=== PATIENT | female | born 1960 | race Caucasian/White ===

== ENCOUNTER 2024-09-18 17:20 | Emergency (ER) | payer OTHER, SELFPAY ==
--- NOTE | ~2024-09-18 | CT_ITS ---
CLINICAL HISTORY: abd pain CT abdomen and pelvis with contrast Comparison: None Findings: Fluid-filled distal esophagus with small hiatal hernia. Kidneys enhance symmetrically and have normal cortical thickness. No renal or ureteral stones. No hydronephrosis. Spleen, adrenal glands, pancreas, gallbladder and liver are unremarkable. Wall calcifications in the abdominal aorta. No abdominal aortic aneurysm. No bowel obstruction, pneumoperitoneum, or pneumatosis. There are scattered colonic diverticula, however no evidence of diverticulitis. Moderate fecal loading in the right colon. No bowel wall thickening. Normal appendix. Uterus is absent. Distended urinary bladder with thin reid. The bones are intact. IMPRESSION: No acute findings. This document has been electronically signed by: Dixon Bishop MD on 09/18/2024 20:10:16
[2024-09-18 17:31] VITALS: BP 162/78; BP 186/70; PULSE 70; PULSE 73; RESP 16; TEMP 36.7; O2SAT 96; O2SAT 97; BMI 26.3
--- NOTE | 2024-09-18 17:41 | ECG_ITS ---
Test Reason : ABD PAIN Blood Pressure : */* mmHG Vent. Rate : 68 BPM Atrial Rate : 68 BPM P-R Int : 164 ms QRS Dur : 76 ms QT Int : 380 ms P-R-T Axes : 62 8 40 degrees QTcB Int : 404 ms Normal sinus rhythm Possible Left atrial enlargement Septal infarct , age undetermined Abnormal ECG When compared with ECG of 23-Jun-2001 20:27, Questionable change in QRS axis Referred By: Agustin Martino Electronically Signed By: MARIEL BUTLER
[2024-09-18 18:13] LABS: MANUAL DIFF FLAG NO
[2024-09-18 18:18] LABS: Basophils Absolute Auto 0.1 X10*3/uL (0.0-0.2); Basophils Percent Auto 0.5 % (0-2); Eosinophils Absolute Auto 0.1 X10*3/uL (0.0-0.4); Eosinophils Percent Auto 0.8 % (0-4); Hematocrit 40.1 % (37.0-47.0); Hemoglobin 13.5 g/dl (12.0-16.0); Imm Gran Abs Auto 0.05 X10*3/uL (0.00-0.03); Imm Gran Pct Auto 0.5 % (0.0-0.4); Lymphocytes Absolute Auto 1.4 X10*3/uL (1.2-4.9); Lymphocytes Percent Auto 13.6 % (20-40); Mean Corpuscular HGB Conc 33.7 g/dl (31.0-35.0); Mean Corpuscular Hemoglobin 29.2 pg (27.0-33.0); Mean Corpuscular Volume 86.8 fL (80.0-98.0); Mean Platelet Volume 9.2 fL (9.4-12.3); Monocytes Absolute Auto 0.9 X10*3/uL (0.1-1.2); Monocytes Percent Auto 8.7 % (2-11); Neutrophils Absolute Auto 7.7 x10*3/uL (2.0-8.3); Neutrophils Percent Auto 75.9 % (45-73); Platelet Count 290 X10*3/uL (160-400); Red Blood Count 4.62 X10*6/uL (4.20-5.50); Red Cell Distribution Width 14.8 % (11.0-16.0); White Blood Count 10.1 X10*3/uL (4.8-10.8)
[2024-09-18 18:26] LABS: Appearance Urine Clear; Color Urine Yellow; Glucose Urine UA Negative (Negative); Leukocyte Esterase Urine Negative (Negative); Nitrite Urine Negative (Negative); PH 6.5 (5.0-9.0); Specific Gravity - Urine <= 1.005 (1.005-1.025); UMIC TRIGGER UACC YES; Urine Blood Trace (Negative); Urine Ketones Negative (Negative); Urine Protein Negative (Neg-Trace)
[2024-09-18 18:29] LABS: Alanine Aminotransferase 14 U/L (0-31); Albumin Level 4.1 g/dL (3.5-5.0); Alkaline Phosphatase 81 U/L (39-117); Anion Gap 12 (12-20); Aspartate Amino Transferase 28 U/L (5-31); Bilirubin Direct 0.1 mg/dL (0.0-0.5); Bilirubin Total 0.3 mg/dL (0.0-1.0); Blood Urea Nitrogen 19 mg/dL (9-16); Calcium 10.8 mg/dL (8.4-10.2); Carbon Dioxide 24 mmol/L (22-29); Chloride 102 mmol/L (96-108); Creatinine Clr Calc Pharmacy 83.5; Estimated Glomerular Filt Rate > 60; Glucose Random 105 mg/dL (60-115); Lactic Acid 1.3 mmol/L (0.5-2.0); Lipase 24 U/L (8-78); Potassium 4.3 mmol/L (3.3-5.1); Sodium 134 mmol/L (135-145); Total Protein 7.5 g/dL (6.5-8.0)
[2024-09-18 18:36] LABS: Troponin-I High Sens Reflx 2hr 2.9 ng/L (<3.5-17.0)
[2024-09-18 18:45] LABS: Bacteria Urine None Seen (None Seen); Hyaline Casts Urine 0-2 /LPF (0-2); RBC Urine 0-2 /HPF (0-2); Squamous Epithelial Cell Urine 0-2 /HPF (0-2); WBC Urine 0-5 /HPF (0-5)
--- NOTE | 2024-09-18 19:21 | PC.NURSE ---
Report taken from Trini LACEY assumed care of pt at this time. Off floor to CT.
[2024-09-18] MEDS: iohexoL 350 MG/ML 100 ML INFUS..BTL 85 ML IV (19:26)
[2024-09-18 19:31] LABS: Amphetamine Screen Urine Not Detected (Not Detect); Barbiturates, Urine Not Detected (Not Detect); Benzodiazepines Screen Urine Not Detected (Not Detect); Buprenorphine Scr Not Detected (Not Detect); Cannabinoid Screen Urine Not Detected (Not Detect); Cocaine Screen Urine Not Detected (Not Detect); Fentanyl, urine Not Detected (Not Detect); Methadone Screen, Urine Not Detected (Not Detect); Opiate Screen Urine Not Detected (Not Detect); Oxycodone Screen Urine Not Detected (Not Detect); Phencyclidine Screen Urine Not Detected (Not Detect)
--- NOTE | 2024-09-18 19:36 | ED.GENADULT ---
HPI - General Adult General Chief complaint: Abdominal Pain Stated complaint: abd pain, N/V/D Time Seen by Provider: 09/18/24 17:41 Source: patient Limitations: no limitations History of Present Illness HPI narrative: 60-year-old female presenting for abdominal pain. Patient states that she has been experiencing years of chronic lower abdominal pain however over the past week she has noticed that it has worsened in nature. She also endorses nonbloody diarrhea. She denies fevers, chills, nausea, vomiting, dysuria, chest pain, shortness of breath. She has history of hysterectomy. Related Data Previous Rx's ?Medication ?Instructions ?Recorded famotidine 20 mg tablet (Pepcid) 20 mg PO BID 30 days #60 tabs 09/18/24 polyethylene glycol 3350 17 17 g PO BID #238 grams 09/18/24 gram/dose oral powder (Miralax) Allergies Allergy/AdvReac Type Severity Reaction Status Date / Time poison lynette extract Allergy Severe BLISTERS Verified 09/18/24 17:36 [POISON LYNETTE] SWELLING bupropion [From Wellbutrin] Allergy Unknown Worsening Verified 09/18/24 17:36 Mood Poison Lynette Scrub Allergy Unknown blisters Verified 09/18/24 17:36 fluoxetine [Prozac] AdvReac Unknown worsening Verified 09/18/24 17:36 mood Review of Systems Review of Systems: Yes all other systems are reviewed and are negative PMFSH Past Medical History Surgical History H/O: hysterectomy Social History Social History Alcohol intake: current Alcohol intake frequency: 3 or more drinks per day Alcohol type: beer Smoked in Last 30 Days: Yes Use of substances other than those prescribed or required for medical reasons: No Advance Directives: No Advance Directives Information Provided: Yes Do you have a plan to hurt others: No Plan Patient : No Physical Exam ED Vital Signs: Vital Signs - 24 hr 09/18/24 17:31 Temperature 98.0 F Pulse Rate 73 Respiratory Rate 16 Blood Pressure 186/70 H Pulse Oximetry 96 Oxygen Delivery Method Room Air BMI result Body Mass Index 26.3 Well-appearing female in no acute distress Normal speech and cognition Unlabored breathing with clear lung doll Normal S1-S2 regular rhythm Abdomen is soft, nondistended with mild bilateral lower quadrant tenderness palpation No CVA tenderness Medications Administered Discontinued Medications Generic Name Dose Route Start Last Admin Trade Name Olivia PRN Reason Stop Dose Admin Iohexol 85 ml 09/18/24 19:25 09/18/24 19:26 Iohexol 350 Mg/Ml 100 Ml Infus..Btl IV 09/18/24 19:26 85 ml ONCE ONE Administration Medical Decision Making Medical Decision Making [facility] Narrative: 63-year-old female presenting for abdominal pain -I am concerned for the following; gastroenteritis, colitis/enteritis, UTI, constipation, nephrolithiasis -labs and imaging studies ordered My independent lab and imaging interpretation: -stable H&H, no white count, electrolytes within normal limits, negative trop -EKG showing sinus rhythm, normal QTC and no ST-elevation -constipation appreciated on CT scan with no large obstruction; radiology impression notes similar findings MiraLax and Pepcid sent to patient's pharmacy. I gave patient home care instructions/follow up instructions and return precautions. I gave referral for local PCPs Lab Data 09/18/24 18:07 09/18/24 18:07 Labs: Lab Results 09/18/24 09/18/24 Range/Units 18:07 18:18 WBC 10.1 (4.8-10.8) X10*3/uL RBC 4.62 (4.20-5.50) X10*6/uL Hgb 13.5 (12.0-16.0) g/dl Hct 40.1 (37.0-47.0) % MCV 86.8 (80.0-98.0) fL MCH 29.2 (27.0-33.0) pg MCHC 33.7 (31.0-35.0) g/dl RDW 14.8 (11.0-16.0) % Plt Count 290 (160-400) X10*3/uL MPV 9.2 L (9.4-12.3) fL Immature Gran % (Auto) 0.5 H (0.0-0.4) % Neut % (Auto) 75.9 H (45-73) % Lymph % (Auto) 13.6 L (20-40) % [place] % (Auto) 8.7 (2-11) % Eos % (Auto) 0.8 (0-4) % Baso % (Auto) 0.5 (0-2) % Lymph # (Auto) 1.4 (1.2-4.9) X10*3/uL [place] # (Auto) 0.9 (0.1-1.2) X10*3/uL Eos # (Auto) 0.1 (0.0-0.4) X10*3/uL Baso # (Auto) 0.1 (0.0-0.2) X10*3/uL Abs Immat Gran (auto) 0.05 H (0.00-0.03) X10*3/uL Absolute Neuts (auto) 7.7 (2.0-8.3) x10*3/uL Absolute Nucleated RBC 0.000 (0.0-0.012) X10*3/uL Nucleated RBC % (auto) 0.0 (0.0-0.2) /100WBC Sodium 134 L (135-145) mmol/L Potassium 4.3 (3.3-5.1) mmol/L Chloride 102 (96-108) mmol/L Carbon Dioxide 24 (22-29) mmol/L Anion Gap 12 (12-20) BUN 19 H (9-16) mg/dL Creatinine 0.66 (0.5-1.4) mg/dL Estim Creat Clear Calc 83.5 Estimated GFR > 60 Random Glucose 105 (60-115) mg/dL Lactic Acid 1.3 (0.5-2.0) mmol/L Calcium 10.8 H (8.4-10.2) mg/dL Total Bilirubin 0.3 (0.0-1.0) mg/dL Direct Bilirubin 0.1 (0.0-0.5) mg/dL AST 28 (5-31) U/L ALT 14 (0-31) U/L Alkaline Phosphatase 81 (39-117) U/L Troponin I Hi Sens Base 2.9 (<3.5-17.0) ng/L Total Protein 7.5 (6.5-8.0) g/dL Albumin 4.1 (3.5-5.0) g/dL Lipase 24 (8-78) U/L Urine Color Yellow Urine Appearance Clear Urine pH 6.5 (5.0-9.0) Ur Specific [place] <= 1.005 (1.005-1.025) Urine Protein Negative (Neg-Trace) mg/dL Urine Glucose (UA) Negative (Negative) mg/dL Urine Ketones Negative (Negative) mg/dL Urine Blood Trace H (Negative) Urine Nitrite Negative (Negative) Ur Leukocyte Esterase Negative (Negative) Urine RBC 0-2 (0-2) /HPF Urine WBC 0-5 (0-5) /HPF Ur Squamous Epith Cells 0-2 (0-2) /HPF Urine Bacteria None Seen (None Seen) Hyaline Casts 0-2 (0-2) /LPF Urine Opiates Screen Not Detected (Not Detect) Ur Buprenorphine Scrn Not Detected (Not Detect) ng/mL Ur Oxycodone Screen Not Detected (Not Detect) ng/mL Urine Methadone Screen Not Detected (Not Detect) ng/mL Urine Fentanyl Screen Not Detected (Not Detect) Ur Barbiturates Screen Not Detected (Not Detect) Ur Phencyclidine Scrn Not Detected (Not Detect) Ur Amphetamines Screen Not Detected (Not Detect) U Benzodiazepines Scrn Not Detected (Not Detect) Urine Cocaine Screen Not Detected (Not Detect) U Marijuana (THC) Screen Not Detected (Not Detect) Discharge Plan Discharge Clinical Impression: Abdominal pain Qualifiers: Abdominal location: generalized Qualified Code(s): R10.84 - Generalized abdominal pain Constipation Qualifiers: Constipation type: unspecified constipation type Qualified Code(s): K59.00 - Constipation, unspecified Patient Disposition: Home, Self-Care Additional Instructions: Please follow up with a primary care provider in the next 24-48 hours for reassessment. 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 If you develop any new or worsening symptoms please return to the emergency department Prescriptions: New famotidine [Pepcid] 20 mg tablet 20 mg PO BID 30 Days Qty: 60 0RF polyethylene glycol 3350 [Miralax] 17 gram/dose powder 17 g PO BID Qty: 238 0RF Print Language: Tristanian
[2024-09-18 20:11] LABS: Reflex Trop? Y
--- NOTE | 2024-09-18 20:44 | PC.NURSE ---
Pt was seen by xray staff exiting bathroom after smoke smell noticed in area. Cigarette ashes found on toilet, when asked by staff initally pt admitted to smoking in bathroom, then denied to this RN. Safety search completed by security pt cooperative with search. 2 packs of cigarettes and precipitation equipment tender removed off person and secured with security.
[2024-09-18 21:07] LABS: zTroponin-I High Sen Reflex #2 5.9 ng/L (<3.5-17.0)
[2024-09-18 21:10] VITALS: BP 177/75; PULSE 73; RESP 18; TEMP 37.2; O2SAT 96
[2024-09-18] MEDS: Acetaminophen 325 MG TABLET 650 MG PO (21:28)
[2024-09-18] MEDS: Famotidine/PF 20 MG/2 ML VIAL IVPUSH (21:29)
[2024-09-18] MEDS: Magnesium Hydrox/Alum Hydrox 30 ML ORAL.SUSP PO (21:29)
[2024-09-18 21:40] VITALS: BP 177/75; PULSE 73; RESP 18; TEMP 37.2; O2SAT 96
== END 2024-09-18 21:40 | disposition home or self-care (01) ==
PROVIDERS: Emergency Provider Student in an Organized Health Care Education/Training Program
DX: R10.84 Generalized abdominal pain (principal); K59.00 Constipation, unspecified; F17.210 Nicotine dependence, cigarettes, uncomplicated
CPT/HCPCS: 36415; 74177; 80048; 80076; 80307; 81001; 83605; 83690; 84484; 85025; 93005; 96374; 99284; 99285; J1308; Q9967

== ENCOUNTER → 2024-09-18 17:41 | Outpatient (BNV) | payer OTHER, SELFPAY | PROVIDERS: Emergency Provider Student in an Organized Health Care Education/Training Program; Visit Provider Internal Medicine | DX: R94.31 Abnormal electrocardiogram [ECG] [EKG] (principal); R10.9 Unspecified abdominal pain | CPT/HCPCS: 93010 ==

== ENCOUNTER → 2024-09-18 18:25 | Outpatient (BNV) | payer OTHER, SELFPAY | PROVIDERS: Emergency Provider Student in an Organized Health Care Education/Training Program; Visit Provider Radiology Diagnostic Radiology | DX: R10.9 Unspecified abdominal pain (principal) | CPT/HCPCS: 74177 ==

== ENCOUNTER 2025-04-23 19:15 | Emergency (ER) | payer OTHER, SELFPAY ==
--- OUTSIDE RECORDS SUMMARY | 2025-04-19 08:51 | XMS_ITS | Continuity of Care Document ---
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 Name Role Phone Daniel GAMBOA, Eliza Dickerson Primary Care Physician Encounter [facility] Date(s): 04/19/25 - 04/19/[address] [address]- Discharge Disposition: A-D/C Home Attending Physician: Last Gallagher MD Admitting Physician: Last Gallagher MD Referring Physician: Not on Staff, Referring MD Encounter Type: Disch ES Allergies, Adverse Reactions, Alerts Substance Criticality Severity Reaction Reaction Severity Status Other Environmental Allergy poison cathie Active Medications aspirin 81 mg oral delayed release tablet 81 mg, By Mouth, Daily, # 30 tablet, Refills 11, Tot. Refills 11, Maintenance, 04/07/25 10:55:00 AMEST, Route to Pharmacy Electronically, [facility], Partial fill upon patient request if the prescription is for a schedule II opioid drug., 66, kg, 04/05/25 6:50:00 EST, Dry Weight Start Date: 04/07/25 Stop Date: 04/02/26 Status: Ordered Medication Dispense Status: Completed Quantity: 30.0 Unit: tablet Total Allowed Fills: 12 Fills Dispensed: 0 atorvastatin 80 mg oral tablet = 80 mg, By Mouth, Daily at bedtime, # 60 tablet, 0 Refills, Maintenance, 04/10/25 10:13:00 AM EST,Tablet, [facility], Partial fill upon patient request if the prescription is for a schedule II opioid drug., 66, kg, 04/05/25 6:50:00 EST, Dry Weight Start Date: 04/10/25 Stop Date: 06/09/25 Status: Ordered Medication Dispense Status: Completed Quantity: 60.0 Unit: tablet Total Allowed Fills: 1 Fills Dispensed: 0 busPIRone 10 mg oral tablet 10 mg, 1, tablet, By Mouth, 2 times a day, Maintenance, 04/06/25 9:22:00 AM EST, Partial fill upon patient request if the prescription is for a schedule II opioid drug. Start Date: 04/06/25 Status: Ordered Medication Dispense Status: Completed Total Allowed Fills: 1 Fills Dispensed: 0 LORazepam 0.5 mg oral tablet 1 tablet = 0.5 mg, By Mouth, Daily at bedtime, PRN as needed for anxiety Start Date: 04/06/25 Status: Ordered Medication Dispense Status: Completed Total Allowed Fills: 1 Fills Dispensed: 0 morphine 15 mg oral tablet, immediate release 1 tablet = 15 mg, By Mouth, Every 6 hours, PRN as needed for pain, for 3 days, # 5 tablet, 0 Refills, Acute 04/22/25 6:42:00 AM EST, 04/19/25 6:42:00 AM EST, Tablet, [facility], Partialfill upon patient request if the prescription is for a schedule II opioid drug., 164, cm, 04/19/25 2:36:00 EST, Height, 65, kg, 04/19/25 2:36:00 EST, Dry Weight Start Date: 04/19/25 Stop Date: 04/22/25 Status: Ordered Medication Dispense Status: Completed Quantity: 5.0 Unit: tablet Total Allowed Fills: 1 Fills Dispensed: 0 MorPHINE Inj 4 mg, Injection, IV Push Slowly, Every 5 minutes for 3 doses/times, PRN for Pain , Moderate, and SBP greater than 100, STAT, 04/19/25 3:21:00 AM EST Start Date: 04/19/25 Stop Date: 04/20/25 Status: Discontinued Medication Dispense Status: Completed Total Allowed Fills: 1 Fills Dispensed: 0 nicotine 21 mg/24 hr transdermal film, extended release = 21 mg, Topically, Daily, for 30 days, # 30 patch, 0 Refills, Acute 05/10/25 10:12:00 AM EST, 04/10/25 10:12:00 AM EST, Patch, [facility], Partial fill upon patient request if the prescription is for a schedule II opioid drug., 21 mg Topically Daily,x30 days, 66, kg, 04/05/25 6:50:00EST, Dry Weight Start Date: 04/10/25 Stop Date: 05/10/25 Status: Ordered Medication Dispense Status: Completed Quantity: 30.0 Unit: patch Total Allowed Fills: 1 Fills Dispensed: 0 Plavix 75 mg oral tablet 75 mg, By Mouth, Daily, # 30 capsule, Refills 3, Tot. Refills 3, Maintenance, 04/07/25 10:55:00 AM EST, Route to Pharmacy Electronically, [facility], Partial fill upon patient request if the prescription is for a schedule II opioid drug., 66, kg, 04/05/25 6:50:00 EST, Dry Weight Start Date: 04/07/25 Stop Date: 08/05/25 Status: Ordered Medication Dispense Status: Completed Quantity: 30.0 Unit: capsule Total Allowed Fills: 4 Fills Dispensed: 0 QUEtiapine 25 mg oral tablet 25 mg, 1, tablet, By Mouth, Daily at bedtime Start Date: 04/06/25 Status: Ordered Medication Dispense Status: Completed Total Allowed Fills: 1 Fills Dispensed: 0 Tums 500 mg oral tablet, chewable 500 mg, 1, tablet, Chew, Daily, PRN, Maintenance, as needed for dyspepsia, 04/06/25 9:25:00 AM EST,Partial fill upon patient request if the prescription is for a schedule II opioid drug. Start Date: 04/06/25 Status: Ordered Medication Dispense Status: Completed Total Allowed Fills: 1 Fills Dispensed: 0 Tylenol 325 mg oral tablet 975 mg, By Mouth, Every 6 hours, Refills 0, Maintenance, 04/10/25 10:08:00 AM EST, Partial fill upon patient request if the prescription is for a schedule II opioid drug. Start Date: 04/10/25 Status: Ordered Medication Dispense Status: Completed Total Allowed Fills: 1 Fills Dispensed: 0 varenicline 1mg tablet = 1 mg, By Mouth, 2 times a day, for 12 week(s), # 56 tablet, 0 Refills, Acute 07/03/25 10:10:00 AM EST, 04/10/25 10:10:00 AM EST, Tablet, [facility], Partial fill upon patient request ifthe prescription is for a schedule II opioid drug., 66, kg, 04/05/25 6:50:00 EST, Dry Weight Start Date: 04/10/25 Stop Date: 07/03/25 Status: Ordered Medication Dispense Status: Completed Quantity: 56.0 Unit: tablet Total Allowed Fills: 1 Fills Dispensed: 0 Results Radiology Reports * Exam Date Time Procedure Performing Provider Status 04/19/25 4:[address] Angio Abdomen and Pelvis Auth (Verified) Notes: (CT Angio Abdomen and Pelvis) Reason For Exam: s/p SMA thrombectomy, celiac stent, polypectomy;Pain RESULT: CT Angio Abdomen and Pelvis CT Angio Abdomen and Pelvis INDICATION: Hx of Present Illness: Pt from home, pt has had chronic abd pain, with previous surguryto removes polyps. Pt is also constipated.; Reason: Pain; s p SMA thrombectomy, celiac stent, polypectomy; Clinical Question(s): Other:; stenosis; Order Comment: Other: - COMPARISON: CT abdomen and pelvis from 04/14/2025 TECHNIQUE: Axial images were obtained from diaphragm through the pelvis during the intravenous administration of iodinated contrast. 100 cc of Isovue 300 100cc vials was administered intravenously. Delayed (venous) images were also acquired for evaluation of the portal veins. Sagittal and coronal maximum intensity projection (MIP) images were reconstructed and rendered in both arterial and venousphases. Weight-based protocol using automatic tube modulation was used to optimize exposure parameters. RADIATION DOSE PARAMETERS: CTDIvol Body: 12.35 mGy, DLP Body: 1307 mGy*cm. VASCULAR FINDINGS: Abdominal aorta: No aortic aneurysm or dissection. Moderate to severe atherosclerosis. Celiac axis: Stenting of the celiac artery which is patent. There is similar low-attenuation signalaround the proximal celiac artery measuring 7 mm in thickness on each side (404:204) that is unchanged. Mild narrowing of the celiac artery distal to the stent. Superior mesenteric artery: Patent. Replaced common hepatic artery. Below the takeoff of the commonhepatic artery is mild/moderate narrowing with low-density posterior filling defect which is unchanged measuring 5 mm (404:244). Distal SMA branches are patent. Right renal artery: Patent. Left renal artery: Patent. Mild left proximal narrowing. Inferior mesenteric artery: Patent. Mild narrowing at the origin. Peripheral atherosclerosis of the iliac arteries. Right common iliac artery: Patent. Right internal iliac artery: Patent. Right external iliac artery: Patent. Short segment moderate distal stenosis. Right common femoral artery: Patent. Mild narrowing. Visualized right superficial and deep femoral arteries: Patent. Left common iliac artery: Patent. Left internal iliac artery: Patent. Left external iliac artery: Patent. Left common femoral artery: Patent. Visualized left superficial and deep femoral arteries: Patent. IVC and hepatic veins: Patent. Portal vein: Patent. Splenic vein: Patent. Superior mesenteric vein: Patent. Iliac and femoral veins: Patent. 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 Visualized Chest: Lung bases are clear. No pleural effusion. The heart is normal in size. No pericardial effusion. Diaphragm: Normal. Liver: Normal morphology and attenuation. Small probable cyst in the left lobe. No suspicious lesion. Gallbladder: No CT evidence of gallbladder pathology. Bile ducts: No biliary ductal dilation. Spleen: Normal in size. Pancreas: No suspicious lesion or ductal dilatation. Adrenal glands: No nodule. Kidneys and ureters: No hydronephrosis, stones, or suspicious masses. Bladder: No significant wall thickening or surrounding inflammation. Reproductive organs: Hysterectomy. Stomach, small bowel, and large bowel: Normal caliber stomach and bowel. No surrounding inflammation or wall thickening. Colonic diverticulosis without evidence of acute diverticulitis. Well-formed stool in the distal colon. Appendix: Normal Peritoneum and retroperitoneum: No ascites or pneumoperitoneum. No omental or mesenteric lesions. Lymph nodes: No enlarged lymph nodes. Abdominal and pelvic wall: Unremarkable. Bones: No acute abnormality. IMPRESSION: Compared to CTA from 04/14/2025, no significant change status post stenting of the celiac artery which is patent. Similar low-attenuation haziness around the celiac axis, possibly due to recent instrumentation or vasculitis. Mild to moderate narrowing of the SMA just below the takeoff of the replaced common hepatic artery with a small amount of eccentric low-attenuation plaque or thrombus. No specific evidence of mesenteric ischemia. Agreed with [facility] report. WSN: [id number] Ordering Physician: Tiffanie Manrique Dictated By: Hussain Ferrer MD Dictated Date/Time: 04/19/25 2:20 pm Reviewed By: Hussain Ferrer MD Signed By: Hussain Ferrer MD Signed Date/Time: 04/19/25 2:20 pm Transcribed By: BOSSMAN Transcribed Date/Time: 04/19/25 2:08 pm Vital Signs Most recent to oldest [Reference Range]: 1 2 3 Height 164 cm (04/19/25 2:36 AM) Oxygen Saturation [94-100 %] 94 % (04/19/25 6:07 AM) 96 % (04/19/25 4:00 AM) 98 % (04/19/25 2:08 AM) Pulse Rate [55-90 bpm] 76 bpm (04/19/25 6:07 AM) 68 bpm (04/19/25 4:00 AM) 71 bpm (04/19/25 2:08 AM) Blood Pressure [90-138/55-84 mm Hg] 114/77mm Hg (04/19/25 6:07 AM) 133/60mm Hg (04/19/25 4:00 AM) 148/67mm Hg *H* (04/19/25 2:08 AM) Respiratory Rate [16-30 br/min] 15 br/min *L* (04/19/25 6:07 AM) 19 br/min (04/19/25 6:05 AM) 17 br/min (04/19/25 4:00 AM) Temperature [96.8-100.4 DegF] 98.5 DegF (04/19/25 6:07 AM) 98.1 DegF (04/19/25 2:08 AM) Mode of Delivery (Oxygen) Room air (04/19/25 6:07 AM) Room air (04/19/25 4:00 AM) Room air (04/19/25 2:08 AM) Blood pressure sites Arm, left (04/19/25 6:07 AM) Arm, left (04/19/25 4:00 AM) Arm, left (04/19/25 2:08 AM) Temperature Route Oral (04/19/25 6:07 AM) Oral (04/19/25 2:08 AM) Dry Weight 65 kg (04/19/25 2:36 AM) Weight Obtained Via Patient lift hanging scale (04/19/25 2:36 AM) Social History Social History Type Response Sex Sex Representation Female (finding) Status Not Note * iTffanie Manrique DO: PERFORM Event Display: Patient Education Leaflets Authored Date: [id number] [facility] - If you need a Doctor or Clinic ?? 34 If You Need a Doctor or Clinic ?? Call [facility] PCP Assignment Line to help you find a doctor:?? [phone] ?? Clinics in [place], [place] For a full list of clinics:? [email or web address].[employer] ?? [facility]? [address] [phone] [facility]?[address]?[phone] [place] [address]?[address][phone] [facility]?[address][phone] [facility]?[address] [phone] [facility]?[address][phone] [facility]?[address][phone] [facility]?[address] [phone] [facility]? [address][phone] [facility] social media director?[address][phone] [facility]?[address][phone] [facility]?[address][phone] [facility]?[address][phone] [facility]? [address][phone] [facility]?[address][phone] ? Patient Care team information Care Team Personnel Name: Kell Phillips RN Position: TRAVISS RN Member Role: Primary Care Nurse Name: Eliza Sanchez MD Position: Reference Physician Member Role: PCP Address: [address] [place], [place] [address] Telecom: Name: Malachi Frias RN Position: [facility] RN Member Role: Primary Care Nurse Name: Leisa Knowles RN Position: S RN Member Role: Primary Care Nurse Care Team Related Persons Name: JEANINEJean RAY Insurance Providers Guarantor name: Health Plan Information #: 1 Payer: [employer] Payer Identifier: [place]AVAGE Member Number: [id number] Group Number: [facility] Subscriber Identifier: [id number] Relationship to Subscriber: self Coverage Type: NA Coverage Verification Date: Telecom: NA Address:
--- NOTE | 2025-04-23 19:28 | ED_ITS ---
HPI - Abdominal Pain General Chief Complaint: Abdominal Pain Stated Complaint: ABD pain Time Seen by Provider: 04/23/25 19:28 Source: patient, EMS, RN notes reviewed, old records reviewed and other ([facility] records) Mode of arrival: EMS Limitations: no limitations History of Present Illness ED Provider: Kalyn Osorio PA-C HPI narrative: Patient seeks medical attention today requesting pain medication for her abdomen. Per EMS, patient walked out to them calmly, told them she was smoking a cigarette first, proceeded to outside, then she got into the ambulance. 64-year-old female presents to the ED for evaluation of diffuse abdominal pain. She reports a 4-year history of chronic abdominal pain with multiple prior ED visits and hospitalizations without a clear etiology. The current episode is described as ?all over,? involving both upper and lower abdomen, and is more severe than previous flares. She was last seen here in August for similar pain and has presented to [facility] ED several times over the past two weeks (11/05, 11/07, 11/12, 11/17) where CT abdomen/pelvis with IV contrast was performed each time and reportedly unrevealing. Three weeks ago she underwent two procedures at [facility]: ? Stent placement for an ?almost closed artery? to the colon (mesenteric ischemia). ? Colonoscopy with removal of two polyps (cecum and sigmoid) ? 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 fully excised per report. During her [facility] visit two nights ago she received IV hydromorphone and an oxycodone prescription (now finished). She also had documented electrolyte abnormalities (K 3.2, Mg 1.5) and mild hyponatremia (Na 131). She denies any new or focal symptoms today but seeks definitive relief of pain. She initially declined but now consents to blood draw, IV fluids, and electrolyte repletion. She understands another CT is deferred given recent imaging. Review of Systems: * Constitutional: Denies fever, chills. * Gastrointestinal: Positive for diffuse abdominal pain. Denies diarrhea, vomiting, GI bleed, or bright-red blood per rectum. * Genitourinary: Denies dysuria; voiding without pain. [facility] records rev'd: Patient was seen at [facility] Emergency Department for which she reports was 2 days ago records were reviewed labs from 04/19/2025 shows no evidence of leukocytosis BERTRAND hepato or biliary disease she does have mild normoocytic anemia RBC: 3.44 H/H 10.0/30.8, her K was 3.4, lactate normal. She has CTA of abd/pelvis: IMPRESSION: Compared to CTA from 04/07/2025 and 04/14/2025, no significant change status post stenting of the celiac artery which is patent. Similar low-attenuation haziness around the celiac axis, possibly due to recent instrumentation or vasculitis. Mild to moderate narrowing of the SMA just below the takeoff of the replaced common hepatic artery with a small amount of eccentric low-attenuation plaque or thrombus. No specific evidence of mesenteric ischemia. From colonocopy on 04/09/25: Tissue Source: 1:SIGMOID COLON POLYPS, 2:CECAL POLYP ? Final Diagnosis: 1. ?Colon, sigmoid, polyps, polypectomy: ?? ? - Tubular adenoma, multiple fragments. ? 2. ?Colon, cecum, polyp, polypectomy: ?? ? - Tubular adenoma, fragments of. Related Data Previous Rx's ?Medication ?Instructions ?Recorded famotidine 20 mg tablet (Pepcid) 20 mg PO BID 30 days #60 tabs 09/18/24 polyethylene glycol 3350 17 17 g PO BID #238 grams gram/dose oral powder (Miralax) oxycodone 10 mg tablet,crush 10 mg PO DAILY #3 tabs resistant,extended release 12 hr Allergies Allergy/AdvReac Type Severity Reaction Status Date / Time poison lynette extract (POISON Allergy Severe BLISTERS Verified 04/23/25 19:40 LYNETTE) SWELLING bupropion (From Wellbutrin) Allergy Unknown Worsening Verified 04/23/25 19:40 Mood Poison Lynette Scrub Allergy Unknown blisters Verified 04/23/25 19:40 fluoxetine (Prozac) AdvReac Unknown worsening Verified 04/23/25 19:40 mood Review of Systems Review of Systems Yes all other systems are reviewed and are negative PMFSH Past Medical History Attestation statement: The following information was validated with the patient. Source: old records reviewed and nursing notes reviewed Surgical History H/O: hysterectomy Social History Social History Alcohol intake: never Physical Exam ED Exam Exam: General: Appears in no acute distress lying in bed, appears of normal body habitus, appears stated age. No septic or ill-appearing. Vitals reviewed normal, PMH/Social and Surgical hx reviewed including allergies and current medications. - reviewed for prior visits here and read as it pertains to similar - [facility] records rev'd Head: Normocephalic, no abnormal lesions noted. Eyes: EOMI. no sclera icterus ENMT: dry oral mucosa, no edematous nasal turbinates, erythema, or purulent d/c noted. No erythema, normal appearing and intact tympanic membrane. Hearing intact. No mastoid tenderness b/l. Normal posterior pharynx and structures. Uvula is midline no trismus. Neck: trachea midline, no lymphadenopathy. No nuchal rigidity. Cardiovascular: peripheral perfusion normal, S1 and S2 present, no M/R/G. RRR Respiratory: no respiratory distress, lungs clear to auscultation b/l, respirations full and symmetric. No flail chest, chest wall tenderness or crepitus noted. Speaking in full smooth sentences. Abdomen: nondistended, Soft; diffusely tender to palpation without focal peritoneal signs. Tenderness described as baseline for patient. Extremities: Warm and appear well perfused. Moving extremities without difficulty. Psych: Cooperative, calm. Neuro: Alert and orientated. No obvious focal deficits. Vital Signs: Vital Signs - 24 hr 04/23/25 19:35 04/23/25 19:54 Temperature 98.3 F 98.3 F Pulse Rate 68 68 Respiratory Rate 15 15 Blood Pressure 165/65 H 165/65 H Pulse Oximetry 100 100 Oxygen Delivery Method Room Air Room Air BMI result Body Mass Index 24.5 Medical Decision Making Medical Decision Making MDM Narrative: Patient presents with chronic abdominal pain and acute exacerbation. Recent extensive imaging (multiple CTs) and procedures (mesenteric stent placement, colonoscopy with excision of tubular adenomas) have not revealed an acute etiology. No new red-flag symptoms or concerning findings on exam or labs. Recent laboratory results show mild hypokalemia, hypomagnesemia, hyponatremia, and persistent normocytic anemia. Decision made to defer repeat CT due to lack of new findings and recent imaging. Plan includes symptomatic management, electrolyte repletion, and outpatient follow-up with pain management and gastroenterology. Citation: Evidence supports deferring repeat CT imaging in the absence of new red-flag symptoms, hemodynamic instability, or significant laboratory changes. Assessment & Plan 64-year-old female with chronic diffuse abdominal pain, recent mesenteric stent placement, and recent colonoscopy with polypectomy, presenting with acute exacerbation. No red-flag findings today; extensive recent imaging unrevealing. Electrolyte abnormalities and anemia noted on recent labs. Will treat symptomatically, address electrolytes, and arrange appropriate outpatient follow-up. Problem #1: Chronic Abdominal Pain / Chronic Mesenteric Ischemia Post-Stent Assessment: 4-year history of diffuse abdominal pain without clear etiology; pain currently worse than baseline. Recent work-up negative for acute surgical abdomen or recurrent ischemia. Citation: Evidence supports deferring repeat CT imaging in the absence of new red-flag symptoms, hemodynamic instability, or significant laboratory changes. Plan: - Provide analgesia in ED (extended-release oxycodone administered). - She was given extended release oxycodone and will be discharged home with ER precautions given. Citation: Guidelines recommend limiting opioid prescriptions for chronic noncancer pain at ED discharge, with documentation of pain management referral. - Discussed limitations of ED for chronic pain; advised outpatient pain management referral and follow-up with GI. - Discharge with ER precautions; return for new/worsening symptoms (fever, vomiting, bloody stool, inability to tolerate PO, etc.). Problem #2: Hypokalemia / Hypomagnesemia Assessment: Recent K 3.2, Mg 1.5 noted on outside labs. Plan: - Draw repeat electrolytes today. - Replete K and Mg intravenously as needed (patient consented). Citation: IV potassium is indicated for levels <2.5 mEq/L or if oral administration is not feasible; oral replacement is preferred for levels >=.5 mEq/L in stable patients. Magnesium repletion is recommended to facilitate potassium correction. Citation: IV magnesium sulfate dosing and monitoring are guideline-recommended for hypomagnesemia, especially when coexisting with hypokalemia. - Encourage oral repletion if able to tolerate. Problem #3: Hyponatremia Assessment: Na 131 on recent outside labs. Plan: - Check repeat basic metabolic panel. - Administer 1 L IV fluids; monitor sodium. Problem #4: Normocytic Anemia Assessment: Persistent normocytic anemia; does not currently meet transfusion threshold. No evidence of active GI bleed (denies melena/BRBPR). Plan: - Include CBC with today?s labs. - Outpatient follow-up with primary care/GI for ongoing evaluation. Follow-Up: Patient to follow up with pain management and gastroenterology as outpatient. Return to ED for worsening pain, new GI symptoms, fever, or other concerns. Citation: Guidelines recommend surveillance colonoscopy at 6?12 months after complete excision of tubular adenomas with intramucosal carcinoma. Differential Diagnosis Differential Diagnoses: The differential diagnosis associated with the presentation includes Admission/Observation Consideration of admission/observation: Escalation of care including admission/observation considered Lab Data MDM Lab Attestation statement: I reviewed the patient's lab results. 04/23/25 20:05 04/23/25 20:05 Labs: Lab Results 04/23/25 Range/Units 20:05 WBC 7.4 (4.8-10.8) X10*3/uL RBC 3.28 L D (4.20-5.50) X10*6/uL Hgb 9.3 L D (12.0-16.0) g/dl Hct 27.5 L D (37.0-47.0) % MCV 83.8 (80.0-98.0) fL MCH 28.4 (27.0-33.0) pg MCHC 33.8 (31.0-35.0) g/dl RDW 13.9 (11.0-16.0) % Plt Count 423 H D (160-400) X10*3/uL MPV 8.3 L (9.4-12.3) fL Immature Gran % (Auto) 0.7 H (0.0-0.4) % Neut % (Auto) 59.4 (45-73) % Lymph % (Auto) 27.8 (20-40) % [place] % (Auto) 10.6 (2-11) % Eos % (Auto) 0.8 (0-4) % Baso % (Auto) 0.7 (0-2) % Lymph # (Auto) 2.0 (1.2-4.9) X10*3/uL [place] # (Auto) 0.8 (0.1-1.2) X10*3/uL Eos # (Auto) 0.1 (0.0-0.4) X10*3/uL Baso # (Auto) 0.1 (0.0-0.2) X10*3/uL Abs Immat Gran (auto) 0.05 H (0.00-0.03) X10*3/uL Absolute Neuts (auto) 4.4 (2.0-8.3) x10*3/uL Absolute Nucleated RBC 0.000 (0.0-0.012) X10*3/uL Nucleated RBC % (auto) 0.0 (0.0-0.2) /100WBC Sodium 131 L (135-145) mmol/L Potassium 3.2 L D (3.3-5.1) mmol/L Chloride 100 (96-108) mmol/L Carbon Dioxide 22 (22-29) mmol/L Anion Gap 12 (12-20) BUN 8 L (9-16) mg/dL Creatinine 0.82 (0.5-1.4) mg/dL Estim Creat Clear Calc 59.8 Estimated GFR > 60 Random Glucose 88 (60-115) mg/dL Calcium 9.4 D (8.4-10.2) mg/dL Magnesium 1.5 L (1.6-2.6) mg/dL Total Bilirubin 0.2 (0.0-1.0) mg/dL AST 27 (5-31) U/L ALT 15 (0-31) U/L Alkaline Phosphatase 83 (39-117) U/L Total Protein 6.8 (6.5-8.0) g/dL Albumin 4.0 (3.5-5.0) g/dL Lipase 36 (8-78) U/L External Record Review External record reviewed: Outside ED record Tests considered The following testing was considered but not selected: CT abd Pelvis, just had several in the last two weeks, no changes will defer for today Prescription Management I considered prescription management with: Pain Medication Chronic Conditions Patient?s care impacted by: Other Social Determinants Patient?s care significantly limited by Social Determinants of Health including: Other Social Determinant of Health Medications Administered Discontinued Medications Generic Name Dose Route Start Last Admin Trade Name Freq PRN Reason Stop Dose Admin Acetaminophen 975 mg 04/23/25 19:54 04/23/25 20:16 Acetaminophen 325 Mg Tablet PO 04/23/25 19:55 975 mg ONCE ONE Administration Sodium Chloride 1,000 mls @ 999 mls/hr 04/23/25 20:41 04/23/25 21:52 Ns IV 04/23/25 21:41 Infused .Q1H1M ONE Infusion Magnesium Sulfate 2 gm in 50 mls @ 150 mls/hr 04/23/25 20:41 04/23/25 21:51 Magnesium Sulfate/H2o IV 04/23/25 21:00 Infused ONCE ONE Infusion Oxycodone HCl 10 mg 04/23/25 20:43 04/23/25 20:51 Oxycodone Hcl Er 10 Mg Tab.Er.12h PO 04/23/25 20:44 10 mg ONCE ONE Administration Potassium Chloride 40 meq 04/23/25 20:41 04/23/25 20:51 Potassium Chloride Er 20 Meq Tab.Er.Prt PO 04/23/25 20:42 40 meq ONCE ONE Administration Critical Care Time Critical Care Time Critical Care Time: Yes Total Critical Care Time: 40 Attestation: This patient required critical care. Due to the fact that the patient required a significant amount of one on one physician ? patient contact time, ordering and review of studies, arranging urgent treatment with development of a management plan, evaluation of patient?s response to treatment with frequent reassessments, and discussions with other providers this patient required critical care time in excess of 30 minutes. Critical care time was indicated due to the inherent instability and/or potential for instability in this patient. The critical care time that is allocated to this patient is above and beyond any time spent on any other billable procedures performed on this patient. Discharge Plan Discharge Clinical Impression: Opiate dependence, continuous, Abdominal pain, Hypomagnesemia, Acute hypokalemia Patient Disposition: Home, Self-Care Instructions: Hypokalemia (ED), Abdominal Pain (ED), Hypomagnesemia (ED) Additional Instructions: You were seen in the emergency department requesting pain medication. You were given long acting opiate analgesic while here along with IV fluids and replenishment of you magnesium and potassium. I want to acknowledge that your pain is real and important, and I understand how difficult it has been to manage your chronic abdominal symptoms over the past four years. The emergency department is always here to evaluate you for serious or emergent complications, and today we've been able to address your acute needs by treating your electrolyte abnormalities and providing pain medication in the ED. However,?the emergency department is not designed to manage ongoing chronic pain or to prescribe long-term pain medications. Our role is to identify and treat urgent medical problems and stabilize patients, but we cannot provide the kind of comprehensive, longitudinal care that chronic pain requires. According to national guidelines from emergency medicine and pain management organizations,?prescribing opioid medications for chronic pain from the ED is not recommended?because it can increase risks of serious side effects and doesn't address the underlying causes of your pain. The best care for your ongoing pain will come from specialists who can see you regularly, monitor your response to treatment, develop a comprehensive pain management plan tailored to your specific situation, and coordinate with your other doctors. This is especially important given your recent procedures for mesenteric ischemia and your colon polyps. I strongly recommend that you follow up with a painter decorator?who can provide the ongoing, coordinated care you need. They will have time to explore all treatment options?including medications, physical therapy, nerve blocks, and other approaches?and can safely monitor you over time. Your primary care doctor can also help facilitate this referral and coordinate your overall care. Please return to the ED if you develop new or concerning symptoms such as fever, vomiting, bloody stools, or pain that is dramatically different from your usual pattern. Prescriptions: New oxycodone 10 mg tablet,oral only,ext.rel.12 hr 10 mg PO DAILY Qty: 3 0RF Rx Instructions: Partial Fill upon patient request. No Action famotidine [Pepcid] 20 mg tablet 20 mg PO BID 30 Days Qty: 60 0RF polyethylene glycol 3350 [Miralax] 17 gram/dose powder 17 g PO BID Qty: 238 0RF Referrals: [facility] [Provider Group, Pain Management] Clinical Impression: Opiate dependence, continuous; Abdominal pain; Acute hypokalemia; Hypomagnesemia Interventions: ED Discharge Assessment Last Done: 04/23/25 22:00 Discharge Date/Time: 04/23/25 22:22 Print Language: Chinese
[2025-04-23 19:35] VITALS: BP 165/65; BP 166/78; PULSE 68; PULSE 78; RESP 15; TEMP 36.8; O2SAT 100; BMI 24.5
[2025-04-23 19:54] VITALS: BP 165/65; PULSE 68; RESP 15; TEMP 36.8; O2SAT 100
--- OUTSIDE RECORDS SUMMARY | 2025-04-23 19:55 | XMS_ITS | Clinical Summary ---
Author Organization [facility] [address] [place] [address] [place] [address] Phone Care Team Providers Care Automotive Electrical Helper Name Role Phone José Miguel Domínguez MD Primary Care Provider Family History Medical History Relation Name Comments Coronary artery disease Mother Hypertension Mother Other cancer Mother skin cancer Relation Name Status Comments Mother Social History Tobacco Use Types Packs/Day Years Used Date Smoking Tobacco: Every Day Cigarettes Alcohol Use Standard Drinks/Week Comments Yes 0 (1 standard drink = 0.6 oz pur e alcohol) Comments Unknown Sex and Gender Information Value Date Recorded Sex Assigned at Not on file Legal Sex Female 2:48 AM EST Gender Identity Not on file Sexual Orientation Not on file Obstetrics History Plan of Treatment Upcoming Encounters Date Type Department Care Team (Late st Contact Info) Description 07/14/2025 4:00 PM EST Office Visit Adult Medicine [address] [phone] José Miguel Domínguez MD [address] [place] [address] Health Maintenance Due Date Last Done Comments Breast Cancer Screening 1960 Colorectal Cancer Screening: Colonoscopy 1960 DTaP,Tdap,and Td Vaccines (1 - Tdap) 11/06/1979 Pneumococcal Vaccine: 50+ Ye ars (1 of 2 - PCV) 11/06/1979 Cervical Cancer Screening: P ap Smear 1981 Zoster Vaccines (1 of 2) 2010 Depression Screening 05/28/2024 HIV Screening 12/04/2024 Hepatitis C Screening 12/04/2024 Social Influencers of Health Screening 12/04/2024 COVID-19 Vaccine (1 - 2024-2 6 season) 2025 Influenza Vaccine (#1) 2025 RSV Immunization Adult Patie nts (1 - 1-dose 75+ series) 11/06/2035 HIB Vaccines Aged Out No longer eligi ble based on patient's age to complete this topic HPV Vaccines Aged Out No longer eligi ble based on patient's age to complete this topic Hepatitis A Vaccines Aged Out No long er eligible based on patient's age to complete this topic Hepatitis B Vaccines Aged Out No long er eligible based on patient's age to complete this topic IPV Vaccines Aged Out No longer eligi ble based on patient's age to complete this topic MMR Vaccines Aged Out No longer eligi ble based on patient's age to complete this topic Meningococcal ACWY Vaccine Aged Out N o longer eligible based on patient's age to complete this topic Meningococcal B Vaccine Aged Out No l onger eligible based on patient's age to complete this topic RSV Immunization Patients Un loulou 20 months Aged Out No longer eligible b ased on patient's age to complete this topic Varicella Vaccines Aged Out No longer eligible based on patient's age to complete this topic Insurance [facility] Care Teams Automotive Electrical Helper Relationship Specialty Start Date End Date José Miguel Domínguez MD [address] [place] [id number] PCP - General Internal Medicine 12/03/24
[2025-04-23 20:09] LABS: MANUAL DIFF FLAG NO
[2025-04-23 20:11] LABS: Hematocrit 27.5 % (37.0-47.0); Hemoglobin 9.3 g/dl (12.0-16.0); Imm Gran Abs Auto 0.05 X10*3/uL (0.00-0.03); Imm Gran Pct Auto 0.7 % (0.0-0.4); Lymphocytes Absolute Auto 2.0 X10*3/uL (1.2-4.9); Mean Corpuscular HGB Conc 33.8 g/dl (31.0-35.0); Mean Corpuscular Hemoglobin 28.4 pg (27.0-33.0); Mean Corpuscular Volume 83.8 fL (80.0-98.0); NRBC Abs Auto 0.000 X10*3/uL (0.0-0.012); NRBC Pct Auto 0.0 /100WBC (0.0-0.2); Platelet Count 423 X10*3/uL (160-400); Red Blood Count 3.28 X10*6/uL (4.20-5.50); White Blood Count 7.4 X10*3/uL (4.8-10.8)
[2025-04-23 20:27] LABS: Alanine Aminotransferase 15 U/L (0-31); Albumin Level 4.0 g/dL (3.5-5.0); Alkaline Phosphatase 83 U/L (39-117); Anion Gap 12 (12-20); Aspartate Amino Transferase 27 U/L (5-31); Blood Urea Nitrogen 8 mg/dL (9-16); Calcium 9.4 mg/dL (8.4-10.2); Carbon Dioxide 22 mmol/L (22-29); Chloride 100 mmol/L (96-108); Creatinine Clr Calc Pharmacy 59.8; Estimated Glomerular Filt Rate > 60; Lipase 36 U/L (8-78); Magnesium 1.5 mg/dL (1.6-2.6); Potassium 3.2 mmol/L (3.3-5.1); Sodium 131 mmol/L (135-145); Total Protein 6.8 g/dL (6.5-8.0)
[2025-04-23] MEDS: oxyCODONE HCl ER 10 MG TAB.ER.12H PO (20:51)
[2025-04-23] MEDS: Potassium Chloride ER 20 MEQ TAB.ER.PRT 40 MEQ PO (20:51)
[2025-04-23] MEDS: Magnesium Sulfate/H2O 2 GM/50 ML PIGGYBACK IV (20:52)
--- NOTE | 2025-04-23 21:05 | PC.NURSE ---
EMS stated patient meets them (they have picked her up several times prior) at the road down the driveway from her house. Patient also smoked a cigarette prior to them bringing her to hospital. Refused to allow any accu check or IV placement
[2025-04-23 22:00] VITALS: BP 165/65; PULSE 68; RESP 15; TEMP 36.8; O2SAT 100
== END 2025-04-23 22:22 | disposition home or self-care (01) ==
PROVIDERS: Physician Assistant Medical; Emergency Provider Emergency Medicine
DX: F11.20 Opioid dependence, uncomplicated (principal); R10.9 Unspecified abdominal pain; E83.42 Hypomagnesemia; E87.6 Hypokalemia
CPT/HCPCS: 36415; 80053; 83690; 83735; 85025; 96361; 96374; 99284; 99285; J3475